=== PATIENT | female | born 1955 | race Caucasian/White ===

== ENCOUNTER 2018-12-10 16:34 | Observation (INO) ==
--- NOTE | 2018-12-10 17:00 | Emergency Department Note ---
ED Disposition Clinical Impression: Lethargy UTI (urinary tract infection) Qualifiers: Urinary tract infection type: site unspecified Hematuria presence: without hematuria Qualified Code(s): N39.0 - Urinary tract infection, site not specified Disposition: Admitted as Observation Condition on Discharge: Fair Referrals: Richar Pulliam MD [Primary Care Provider] - - Critical Care Critical Care Time: No Attestation: On 12/10/18, the high probability of a clinically significant, sudden or life threatening deterioration of the following system(s) required my full and direct attention, intervention and personal management. The time I documented below is in addition to time spent performing reported procedures but includes the following listed in this critical care notation. Medical Decision Making - [place] Inquiry Pt receiving controlled substance: No Vital Signs: 12/10/18 16:47 12/10/18 16:57 12/10/18 18:21 Temperature 97.7 F Temperature Source Oral Pulse Rate [Left Apical] 70 59 L 62 Respiratory Rate 18 18 Blood Pressure [Right Arm] 112/73 113/88 123/66 Blood Pressure Mean [Right Arm] 86 96 85 Blood Pressure Source [Right Arm] Blood Pressure Position [Right Arm] 02 Sat by Pulse Oximetry 99 96 100 Oxygen Delivery Method Room Air Room Air 12/10/18 19:03 12/10/18 20:26 Temperature Temperature Source Pulse Rate [Left Apical] 65 111 H Respiratory Rate 18 Blood Pressure [Right Arm] 138/99 H 142/77 H Blood Pressure Mean [Right Arm] 112 98 Blood Pressure Source [Right Arm] Automatic Cuff Blood Pressure Position [Right Arm] Sitting 02 Sat by Pulse Oximetry 97 97 Oxygen Delivery Method Room Air - Lab Data Lab Results 12/10/18 17:10: Specimen Source Right radial, O2 % room air, ABG pH 7.35, ABG pCO2 43.5, ABG pO2 69.4 L, ABG HCO3 23.3, ABG Total CO2 24.6, ABG O2 Saturation 93, ABG Base Excess -2.4, Feng Test Patient unable 12/10/18 17:30: WBC 6.0, RBC 4.06 L, Hgb 12.4, Hct 37.6, MCV 92.6, MCH 30.5, MCHC 32.9, RDW 13.6, Plt Count 248, MPV 7.1 L, Neut % (Auto) 66.5, Lymph % (Auto) 25.0, [place] % (Auto) 7.8, Eos % (Auto) 0.2, Baso % (Auto) 0.5, Neut # (Auto) 4.0, Lymph # (Auto) 1.5, [place] # (Auto) 0.5, Eos # (Auto) 0.0, Baso # (Auto) 0.0 12/10/18 17:30: Sodium 139, Potassium 4.2, Chloride 106, Carbon Dioxide 26, Anion Gap 11.2, BUN 28 H, Creatinine 1.99 H, Estimated Creat Clear 39, Estimated GFR 25 L, Est GFR ( Amer) 31 L, Glucose 94, Calcium 8.8, Total Bilirubin 0.3, AST 9 L, ALT 21, Alkaline Phosphatase 118 H, Troponin I < 0.02, Total Protein 7.3, Albumin 3.2 L, Globulin 4.1 H, Albumin/Globulin Ratio 0.8 L, Salicylates 1.0 L, Acetaminophen 0 L 12/10/18 17:30: TSH 0.79, Free T4 Index 3.2 L, Thyroxine (T4) 8.9, T3 Uptake 36 12/10/18 18:19: Urine Color Yellow, Urine Appearance Clear, Urine pH 6.0, Ur Sp ecific [place] <= 1.005, Urine Protein Negative, Urine Glucose (UA) Negative, Urine Ketones Negative, Urine Blood Trace-l, Urine Nitrate Negative, Urine Bilirubin Negative, Urine Urobilinogen 0.2, Ur Leukocyte Esterase 2+ A, Urine WBC 10-20, Ur Squamous Epith Cells Occasional 12/10/18 18:19: Urine Opiates Screen Negative, Urine Methadone Screen Negative, Ur Barbituates Screen Negative, Ur Phencyclidine Scrn Negative, Ur Amphetamines Screen Negative, U Benzodiazepines Scrn Negative, Urine Cocaine Screen Negative, U Marijuana (THC) Screen Negative Result diagrams: 12/10/18 17:30 12/10/18 17:30 Orders (Tests/Meds): ED MEDICATIONS Generic Name Dose Route Start Last Admin Trade Name Freq PRN Reason Stop Dose Admin Ceftriaxone Sodium 1 gm/ 50 mls @ 100 mls/hr 12/10/18 20:00 12/10/18 20:18 Sodium Chloride IV 12/24/18 19:59 100 mls/hr Q24H ROSALBA Administration Protocol ORDERS Category Date Time Status Urine Culture Stat Micro 12/10/18 18:19 Received - CT Data CT Scan: Head Time Received: 19:36 Findings Narrative: CT scan interpreted by [facility] radiologist. Faxed report received and reviewed: No acute intracranial abnormality - ECG Data Tracing #1 EKG interpreted by Teo Erickson MD: Rhythm: sinus Rate: 74 [place]: normal Ectopy: Frequent premature contractions, which appear both supraventricular and ventricular, in a pattern of bigeminy Conduction: QTc [address] Segment Changes: none T Wave Changes: none Q Waves: none No evidence of acute ischemia or injury No prior EKGs available for comparison - Physician Consults Physician Consulted: Heraclio - present Time: 20:05 Reason -: Admission Comment/Response: Agrees to admit the patient to the hospital. We discussed the patient's clinical information, including history, exam, laboratory and radiology results and ED course. Per hospital procedure, I will write temporary bridge inpatient orders on the patient. Specific orders requested by the admitting physician: Admit for observation, hold all medications - Reevaluation(s) Time: 20:00 Reevaluation #1: Improved, "more coherent" per sister. Still falls asleep readily when not stimulated. General Adult HPI - General Chief complaint: Altered Mental Status Stated complaint: lethargy Time Seen by Provider: 12/10/18 16:59 Mode of Arrival: Ambulatory Limitations: No Limitations Description of Symptoms (Recalled from ER Triage Doc. by RN): PT arrived from detention with increased lethergy as stated by a visitor. PT states someon at the detention gave her a little red pill that is making her tired. - History of Present Illness HPI narrative: Patient is brought in by ambulance from detention for altered mental status. History obtained from the patient's sister. She states she went to visit the patient today and could not wake her up. She was extremely lethargic. She could not get her to stay awake. She did not complain of any pain. She has not otherwise been ill. There have been no recent medication changes to her knowledge. The patient mentioned to the ED nurse that somebody at the detention, and nurse, had given her a little red pill. - Related Data Home Medications Medication Instructions Recorded Confirmed acetaminophen 500 mg tablet 1,000 mg PO Q6H PRN tab 10/11/18 10/11/18 acetaminophen 500 mg tablet 500 mg PO Q6H PRN 10/11/18 10/11/18 benztropine 2 mg tablet 2 mg PO BID 10/11/18 10/11/18 clonazepam 0.5 mg tablet 0.5 mg PO TID 10/11/18 10/11/18 escitalopram 10 mg tablet 10 mg PO DAILY 10/11/18 10/11/18 haloperidol 10 mg tablet 10 mg PO TID 10/11/18 10/11/18 olanzapine 10 mg tablet 10 mg PO QHS 10/11/18 10/11/18 olanzapine 5 mg tablet 5 mg PO QHS 10/11/18 10/11/18 omeprazole 20 mg capsule,delayed 20 mg PO BID cap 10/11/18 10/11/18 release trazodone 50 mg tablet 50 mg PO QHS PRN 10/11/18 10/11/18 Allergies Allergy/AdvReac Type Severity Reaction Status Date / Time lithium AdvReac Verified 10/11/18 10:55 risperidone AdvReac Verified 10/11/18 10:55 [facility] History - Hepatitis A Screen Drug use history?: No High risk sexual behaviors?: No History of sexually transmitted infection?: No Currently employed?: No Childcare worker?: No Do you have indoor plumbing?: Yes Do you have electricity?: Yes Attestation statement:: This patient has been screened for Hepatitis A risk factors. - Social History Alcohol Intake: never Occupational Status: disabled - Psychiatric History Expresses thoughts of harming self/others: None Suicide Plan Description: No Plan ROS Obtained: Yes unobtainable due to mental status Physical Exam - General General appearance: lethargic Comment: Sleeping, awakens when spoken to. Answers questions, but speech is slurred. No facial asymmetry. - Head Head exam: atraumatic, normocephalic - Eye Eye exam: Present: normal appearance, PERRL, EOMI, other (Pupils 5 mm, reactive.) - ENT ENT exam: Present: mucous membranes dry - Neck Neck exam: Present: normal inspection, trachea midline. Absent: meningismus - Chest Chest inspection: Present: normal inspection, symmetric chest wall rise - Respiratory Respiratory exam: Present: normal lung sounds bilaterally. Absent: respiratory distress - Cardiovascular Cardiovascular exam: Present: regular rate, normal rhythm, normal heart sounds - Abdominal Exam Abdominal exam: Present: soft, normal bowel sounds. Absent: distention, tenderness, guarding, rebound, rigidity - Extremities Exam Extremities exam: Present: normal inspection - Neurological Exam Neurological exam: Present: CN II-XII intact, other (Lethargic without focal deficits). Absent: motor sensory deficit - Skin Skin exam: Present: warm, dry
[2018-12-10 17:42] LABS: Basophils % 0.5 % (0.1-2.0); Eosinophils % 0.2 % (0.1-12.0); Hematocrit 37.6 % (37.0-47.0); Hemoglobin 12.4 g/dL (12.2-16.2); Lymphocytes # 1.5 K/mm3 (0.7-4.5); Mean Corpuscular HGB Conc 32.9 g/dL (31.8-35.4); Mean Corpuscular Hemoglobin 30.5 pg (27.0-31.2); Mean Corpuscular Volume 92.6 fl (81-99); Mean Platelet Volume 7.1 fl (7.4-10.4); Monocytes # 0.5 K/mm3 (0.1-1.0); Monocytes % 7.8 % (1.7-9.3); Neutrophils % 66.5 % (37.0-80.0); Platelet Count 248 K/mm3 (142-424); Red Blood Count 4.06 M/mm3 (4.20-5.40); Red Cell Distribution Width 13.6 % (11.5-17.5)
[2018-12-10 18:01] LABS: Alanine Aminotransferase 21 U/L (12-78); Albumin Level 3.2 gm/dL (3.4-5.0); Albumin/Globulin Ratio 0.8 (1.1-1.8); Alkaline Phosphatase 118 U/L (46-116); Anion Gap 11.2 mEq/L (5-15); Aspartate Amino Transferase 9 U/L (15-37); Bilirubin,Total 0.3 mg/dL (0.2-1.0); Blood Urea Nitrogen 28 mg/dL (7-18); Calcium 8.8 mg/dL (8.5-10.1); Carbon Dioxide 26 mmol/L (21.0-32.0); Chloride 106 mmol/L (98-107); Globulin 4.1 gm/dl (1.3-3.2); Glucose 94 mg/dL (74-106); Potassium 4.2 mmoL/L (3.5-5.1); Sodium 139 mmol/L (136-145); Total Protein,Serum 7.3 gm/dL (6.4-8.2)
[2018-12-10 18:08] LABS: ABG Base Excess -2.4 mmol/L (-2.4-2.3); ABG HCO3 23.3 mmhg (22.0-26.0); ABG Oxygen Saturation 93 % (90-100); ABG PCO2 43.5 mmhg (35.0-45.0); ABG PH 7.35 mmol/L (7.35-7.45); ABG PO2 69.4 mmhg (80-100); ABG TCO2 24.6 mmhg (23-27)
[2018-12-10 18:09] LABS: Allen's Test Patient Unable; Oxygen room air %
[2018-12-10 18:25] LABS: Microscopic, Urine URINE MICROSCOPIC (MICROSCOPIC)
[2018-12-10 18:35] LABS: Acetaminophen 0 ug/mL (10-30)
[2018-12-10 18:37] LABS: Free Thyroxine Index 3.2 ug/dL (5.93-13.13); Thyroid Stimulating Hormone 0.79 uIU/ml (0.358-3.740)
[2018-12-10 18:46] LABS: Appearance,Urine CLEAR (Clear); Bilirubin,Urine Negative (Negative); Blood, Urine TRACE-L (Negative); Color,Urine YELLOW (Yellow); Glucose,Urine (UA) Negative (Negative); Ketones,Urine Negative (Negative); Leukocyte Esterase,Urine 2+ (Negative); Protein,Urine Negative (Negative); Specific Gravity, Urine <= 1.005 (1.005-1.030); Squamous Epithelial Cell,Urine Occasional #/hpf (0-5); Urobilinogen,Urine 0.2 EU/dl (0.2)
[2018-12-10 19:01] LABS: Amphetamine/Metha Screen,Urine Negative ng/mL (<1000); Barbiturates Screen,Urine Negative ng/mL (<200); Benzodiazepines Screen,Urine Negative ng/mL (<200); Cannabinoid Screen,Urine Negative ng/mL (<50); Cocaine Screen,Urine Negative ng/mL (<300); Methadone Screen,Urine Negative ng/mL (<300); Opiate Screen,Urine Negative ng/mL (<300); Phencyclidine Screen,Urine Negative ng/mL (<25)
--- NOTE | 2018-12-10 21:43 | History & Physical Report ---
*Admission Date: 12/10/18 *Chief complaint: altered mental status *History of present illness: this wf was sent from [facility] for eval of change in mental status -pt was poor historian but sister present and reports more lethargic today atient is brought in by ambulance from halfway for altered mental status. History obtained from the patient's sister. She states she went to visit the patient today and could not wake her up. She was extremely lethargic. She could not get her to stay awake. She did not complain of any pain. She has not otherwise been ill. There have been no recent medication changes to her knowledge. The patient mentioned to the ED nurse that somebody at the halfway, and nurse, had given her a little red pill. pt was found to have uti and was admitted for ivf and abx - [facility] History I have reviewed the patient's past medical history: Yes - *Social History Alcohol Intake: never *Occupational Status:: disabled *Travel in the last 8 weeks: None - Psychiatric History Expresses thoughts of harming self/others: None Suicide Plan Description: No Plan Family Hx:: No significant family history Review of Systems - Review of Systems Review of systems:: pertinent systems reviewed and negative unless documented below - Constitutional Reports weakness, Reports other (altered mental status ), Denies fever(s) - Eyes Denies change in vision - ENT Denies sore throat - *Cardiovascular Denies chest pain at rest - *Respiratory Denies cough - *Gastrointestinal Denies abdominal pain - *Genitourinary Denies blood in urine - *Musculoskeletal Denies back pain - Integumentary/Breasts Denies rash - *Neurologic Reports confusion, Denies localized weakness - Psychiatric Reports confusion Meds Home Medications Medication Instructions Recorded Confirmed Type acetaminophen 500 mg tablet 1,000 mg PO Q6H PRN tab 10/11/18 12/10/18 History acetaminophen 500 mg tablet 500 mg PO Q6H PRN 10/11/18 12/10/18 History benztropine 2 mg tablet 2 mg PO BID 10/11/18 12/10/18 History clonazepam 0.5 mg tablet 0.5 mg PO TID 10/11/18 12/10/18 History escitalopram 10 mg tablet 10 mg PO DAILY 10/11/18 12/10/18 History haloperidol 10 mg tablet 10 mg PO TID 10/11/18 12/10/18 History olanzapine 10 mg tablet 10 mg PO QHS 10/11/18 12/10/18 History olanzapine 5 mg tablet 5 mg PO DAILY 10/11/18 12/10/18 History omeprazole 20 mg capsule,delayed 20 mg PO BID cap 10/11/18 12/10/18 History release trazodone 50 mg tablet 50 mg PO QHS 10/11/18 12/10/18 History Allergies Allergy/AdvReac Type Severity Reaction Status Date / Time lithium AdvReac Verified 10/11/18 10:55 risperidone AdvReac Verified 10/11/18 10:55 Exam Vital signs and Labs for Last 24 Hours: Temp Pulse Resp BP Pulse Ox 98.0 F 72 16 140/70 97 12/10/18 21:23 12/10/18 21:23 12/10/18 21:23 12/10/18 21:23 12/10/18 20:26 Laboratory Results - last 24 hr 12/10/18 17:10: Specimen Source Right radial, O2 % room air, ABG pH 7.35, ABG pCO2 43.5, ABG pO2 69.4 L, ABG HCO3 23.3, ABG Total CO2 24.6, ABG O2 Saturation 93, ABG Base Excess -2.4, Feng Test Patient unable 12/10/18 17:30: WBC 6.0, RBC 4.06 L, Hgb 12.4, Hct 37.6, MCV 92.6, MCH 30.5, MCHC 32.9, RDW 13.6, Plt Count 248, MPV 7.1 L, Neut % (Auto) 66.5, Lymph % (Auto) 25.0, [place] % (Auto) 7.8, Eos % (Auto) 0.2, Baso % (Auto) 0.5, Neut # (Auto) 4.0, Lymph # (Auto) 1.5, [place] # (Auto) 0.5, Eos # (Auto) 0.0, Baso # (Auto) 0.0 12/10/18 17:30: Sodium 139, Potassium 4.2, Chloride 106, Carbon Dioxide 26, Anion Gap 11.2, BUN 28 H, Creatinine 1.99 H, Estimated Creat Clear 39, Estimated GFR 25 L, Est GFR ( Amer) 31 L, Glucose 94, Calcium 8.8, Total Bilirubin 0.3, AST 9 L, ALT 21, Alkaline Phosphatase 118 H, Troponin I < 0.02, Total Protein 7.3, Albumin 3.2 L, Globulin 4.1 H, Albumin/Globulin Ratio 0.8 L, Salicylates 1.0 L, Acetaminophen 0 L 12/10/18 17:30: TSH 0.79, Free T4 Index 3.2 L, Thyroxine (T4) 8.9, T3 Uptake 36 12/10/18 18:19: Urine Color Yellow, Urine Appearance Clear, Urine pH 6.0, Ur Specific [place] <= 1.005, Urine Protein Negative, Urine Glucose (UA) Negative, Urine Ketones Negative, Urine Blood Trace-l, Urine Nitrate Negative, Urine Bilirubin Negative, Urine Urobilinogen 0.2, Ur Leukocyte Esterase 2+ A, Urine WBC 10-20, Ur Squamous Epith Cells Occasional 12/10/18 18:19: Urine Opiates Screen Negative, Urine Methadone Screen Negative, Ur Barbituates Screen Negative, Ur Phencyclidine Scrn Negative, Ur Amphetamines Screen Negative, U Benzodiazepines Scrn Negative, Urine Cocaine Screen Negative, U Marijuana (THC) Screen Negative I & O for Last 24 hours: Intake & Output 12/08/18 12/09/18 12/10/18 12/11/18 11:59 11:59 11:59 11:59 Weight 185 lb - Constitutional no acute distress, obese, somnolent - *Routine HEENT Exam Head: Present: normocephalic Eye: Present: EOMI, PERRL. Absent: conjunctival icterus, scleral injection ENT: Present: mucous membranes dry - *Routine Neck Exam Present: supple. Absent: JVD - *Routine Respiratory Exam Present: decreased breath sounds - *Routine Cardiovascular Exam Present: RRR, murmur - *Routine Abdominal Exam Present: soft - *Routine Extremities Exam Absent: Sarita's sign - Routine Back/Spine/Pelvis Exam Back/Spine: Absent: CVA tenderness - *Routine Skin Exam Present: intact - *Routine Neurological Exam Present: alert, CN II-XII intact, altered mental status - Routine Psychiatric Exam Present: unable to assess Assessment and Plan (1) Acute delirium Current visit: Yes Status: Acute Category: Medical Code(s): R41.0 - Disorientation, unspecified (2) UTI (urinary tract infection) Current visit: Yes Status: Acute Qualifiers: Urinary tract infection type: site unspecified Hematuria presence: without hematuria Qualified Code(s): N39.0 - Urinary tract infection, site not specified Category: Medical Code(s): N39.0 - Urinary tract infection, site not specified (3) Obesity (BMI 30.0-34.9) Current visit: Yes Status: Acute Category: Medical Code(s): E66.9 - Obesity, unspecified (4) CKD (chronic kidney disease) stage 4, GFR 15-29 ml/min Current visit: Yes Status: Acute Category: Medical Code(s): N18.4 - Chronic kidney disease, stage 4 (severe) (5) Hiatal hernia Current visit: Yes Status: Acute Category: Medical Code(s): K44.9 - Diaphragmatic hernia without obstruction or gangrene (6) Bigeminy Current visit: Yes Status: Acute Category: Medical Code(s): I49.9 - Cardiac arrhythmia, unspecified (7) Prolonged Q-T interval on ECG Current visit: Yes Status: Acute Category: Medical Code(s): R94.31 - Abnormal electrocardiogram [ECG] [EKG]
--- NOTE | 2018-12-11 08:42 | Progress Note ---
Internal Medicine - PN: Subj *Date: 12/11/18 *Time: 08:41 Interval history: doing better Exam Vital signs and Labs for Last 24 Hours: Temp Pulse Resp BP Pulse Ox 98.3 F 92 H 16 110/78 92 L 12/11/18 04:00 12/11/18 04:00 12/11/18 04:00 12/11/18 04:00 12/11/18 04:00 Laboratory Results - last 24 hr 12/10/18 17:10: Specimen Source Right radial, O2 % room air, ABG pH 7.35, ABG pCO2 43.5, ABG pO2 69.4 L, ABG HCO3 23.3, ABG Total CO2 24.6, ABG O2 Saturation 93, ABG Base Excess -2.4, Feng Test Patient unable 12/10/18 17:30: WBC 6.0, RBC 4.06 L, Hgb 12.4, Hct 37.6, MCV 92.6, MCH 30.5, MCHC 32.9, RDW 13.6, Plt Count 248, MPV 7.1 L, Neut % (Auto) 66.5, Lymph % (Auto) 25.0, [place] % (Auto) 7.8, Eos % (Auto) 0.2, Baso % (Auto) 0.5, Neut # (Auto) 4.0, Lymph # (Auto) 1.5, [place] # (Auto) 0.5, Eos # (Auto) 0.0, Baso # (Auto) 0.0 12/10/18 17:30: Sodium 139, Potassium 4.2, Chloride 106, Carbon Dioxide 26, Anion Gap 11.2, BUN 28 H, Creatinine 1.99 H, Estimated Creat Clear 39, Estimated GFR 25 L, Est GFR ( Amer) 31 L, Glucose 94, Calcium 8.8, Total Bilirubin 0.3, AST 9 L, ALT 21, Alkaline Phosphatase 118 H, Troponin I < 0.02, Total Protein 7.3, Albumin 3.2 L, Globulin 4.1 H, Albumin/Globulin Ratio 0.8 L, Salicylates 1.0 L, Acetaminophen 0 L 12/10/18 17:30: TSH 0.79, Free T4 Index 3.2 L, Thyroxine (T4) 8.9, T3 Uptake 36 12/10/18 18:19: Urine Color Yellow, Urine Appearance Clear, Urine pH 6.0, Ur Specific [place] <= 1.005, Urine Protein Negative, Urine Glucose (UA) Negative, Urine Ketones Negative, Urine Blood Trace-l, Urine Nitrate Negative, Urine Bilirubin Negative, Urine Urobilinogen 0.2, Ur Leukocyte Esterase 2+ A, Urine WBC 10-20, Ur Squamous Epith Cells Occasional 12/10/18 18:19: Urine Opiates Screen Negative, Urine Methadone Screen Negative, Ur Barbituates Screen Negative, Ur Phencyclidine Scrn Negative, Ur Amphetamines Screen Negative, U Benzodiazepines Scrn Negative, Urine Cocaine Screen Negative, U Marijuana (THC) Screen Negative I & O for Last 24 hours: Intake & Output 12/08/18 12/09/18 12/10/18 12/11/18 11:59 11:59 11:59 11:59 Intake Total 627 / 627 Output Total 1650 / 1650 Balance -1023 / -1023 Weight 194 lb 6 oz Microbiology Reports for the Last 24 Hours: Microbiology 12/10/18 18:19 Urine,Catheterized Urine Culture - Preliminary - Constitutional no acute distress, obese - *Routine HEENT Exam Head: Present: normocephalic Eye: Present: EOMI, PERRL ENT: Present: mucous membranes dry - *Routine Neck Exam Absent: JVD - *Routine Respiratory Exam Present: CTA bilaterally - *Routine Cardiovascular Exam Present: RRR, murmur - *Routine Abdominal Exam Present: soft - *Routine Extremities Exam Absent: calf tenderness - *Routine Skin Exam Present: intact - *Routine Neurological Exam Present: alert, CN II-XII intact - Routine Psychiatric Exam Present: normal affect Assessment and Plan (1) Acute delirium Current visit: Yes Status: Acute Category: Medical Code(s): R41.0 - Disorientation, unspecified (2) UTI (urinary tract infection) Current visit: Yes Status: Acute Qualifiers: Urinary tract infection type: site unspecified Hematuria presence: without hematuria Qualified Code(s): N39.0 - Urinary tract infection, site not specified Category: Medical Code(s): N39.0 - Urinary tract infection, site not specified (3) Obesity (BMI 30.0-34.9) Current visit: Yes Status: Acute Category: Medical Code(s): E66.9 - Obesity, unspecified (4) CKD (chronic kidney disease) stage 4, GFR 15-29 ml/min Current visit: Yes Status: Acute Category: Medical Code(s): N18.4 - Chronic kidney disease, stage 4 (severe) (5) Hiatal hernia Current visit: Yes Status: Acute Category: Medical Code(s): K44.9 - Diaphragmatic hernia without obstruction or gangrene (6) Bigeminy Current visit: Yes Status: Acute Category: Medical Code(s): I49.9 - Cardiac arrhythmia, unspecified (7) Prolonged Q-T interval on ECG Current visit: Yes Status: Acute Category: Medical Code(s): R94.31 - Abnormal electrocardiogram [ECG] [EKG]
[2018-12-11 11:29] LABS: Basophils % 0.3 % (0.1-2.0); Eosinophils # 0.1 K/mm3 (0.0-0.4); Eosinophils % 0.5 % (0.1-12.0); Hematocrit 39.7 % (37.0-47.0); Hemoglobin 13.2 g/dL (12.2-16.2); Lymphocytes # 1.6 K/mm3 (0.7-4.5); Lymphocytes % 13.2 % (10-50); Mean Corpuscular HGB Conc 33.2 g/dL (31.8-35.4); Mean Corpuscular Hemoglobin 30.5 pg (27.0-31.2); Mean Corpuscular Volume 91.9 fl (81-99); Mean Platelet Volume 7.6 fl (7.4-10.4); Monocytes # 0.5 K/mm3 (0.1-1.0); Monocytes % 4.5 % (1.7-9.3); Neutrophils # 9.7 K/mm3 (1.8-7.8); Neutrophils % 81.6 % (37.0-80.0); Platelet Count 246 K/mm3 (142-424); Red Blood Count 4.32 M/mm3 (4.20-5.40); Red Cell Distribution Width 13.6 % (11.5-17.5)
[2018-12-11 12:45] LABS: Anion Gap 16.1 mEq/L (5-15); Calcium 8.7 mg/dL (8.5-10.1); Potassium 4.1 mmoL/L (3.5-5.1)
--- NOTE | 2018-12-11 13:34 | Pharmacy Consult Notes ---
[facility] Pharmacy VTE Monitoring - Patient Demographics Admission date: 12/10/18 Report Date: 12/11/18 Time: 13:34 Allergies/Adverse Reactions: Patient Allergies lithium Adverse Reaction (Verified 10/11/18 10:55) risperidone Adverse Reaction (Verified 10/11/18 10:55) Height: 1.68 m Weight: 88.167 kg Patient Problems: Current Active Problems (Updated 12/11/18 @ 08:39 by Richar Pulliam MD) Lethargy (Acute) UTI (urinary tract infection) (Acute) Acute delirium (Acute) UTI (urinary tract infection) (Acute) Obesity (BMI 30.0-34.9) (Acute) CKD (chronic kidney disease) stage 4, GFR 15-29 ml/min (Acute) Hiatal hernia (Acute) Bigeminy (Acute) Prolonged Q-T interval on ECG (Acute) - VTE Risk Labs: VTE Related Lab Results Hgb 13.2 g/dL (12.2-16.2) 12/11/18 11:16 Hct 39.7 % (37.0-47.0) 12/11/18 11:16 Plt Count 246 K/mm3 (142-424) 12/11/18 11:16 BUN 25 mg/dL (7-18) H 12/11/18 11:16 Creatinine 1.96 mg/dL (0.55-1.02) H 12/11/18 11:16 Estimated Creat Clear 42 mL/min (50-200) 12/11/18 11:16 Was VTE Risk Assessment Performed: Yes VTE Score: 2 VTE Risk Level: Very Low Risk - Prophylaxis VTE Prophylaxis Ordered?: Yes Types of VTE Prophylaxis: TEDS Knee High Location of Applied Device: Bilateral Lower Extremeties
[2018-12-12 08:53] LABS: Eosinophils % 0.1 % (0.1-12.0); Monocytes # 0.4 K/mm3 (0.1-1.0); Red Cell Distribution Width 13.6 % (11.5-17.5)
[2018-12-12 08:57] LABS: Basophils % 0.6 % (0.1-2.0); Hematocrit 34.7 % (37.0-47.0); Lymphocytes # 1.3 K/mm3 (0.7-4.5); Lymphocytes % 19.3 % (10-50); Mean Corpuscular HGB Conc 32.4 g/dL (31.8-35.4); Mean Corpuscular Volume 92.6 fl (81-99); Mean Platelet Volume 7.3 fl (7.4-10.4); Monocytes % 5.5 % (1.7-9.3); Neutrophils # 5.1 K/mm3 (1.8-7.8); Neutrophils % 74.6 % (37.0-80.0); Platelet Count 222 K/mm3 (142-424); Red Blood Count 3.75 M/mm3 (4.20-5.40); White Blood Count 6.9 K/mm3 (4.8-10.8)
[2018-12-12 08:59] LABS: Anion Gap 16.4 mEq/L (5-15); Calcium 8.5 mg/dL (8.5-10.1); Potassium 4.4 mmoL/L (3.5-5.1)
[2018-12-12 09:00] LABS: Hemoglobin 11.2 g/dL (12.2-16.2)
--- NOTE | 2018-12-12 09:00 | Progress Note ---
Internal Medicine - PN: Subj *Date: 12/12/18 *Time: 08:56 Interval history: doing better - still not at baseline Exam Vital signs and Labs for Last 24 Hours: Temp Pulse Resp BP Pulse Ox 97.8 F 76 16 132/66 98 12/12/18 04:00 12/12/18 04:00 12/12/18 04:00 12/12/18 04:00 12/12/18 07:43 Laboratory Results - last 24 hr 12/11/18 11:16: WBC 12.0 H D, RBC 4.32, Hgb 13.2, Hct 39.7, MCV 91.9, MCH 30.5, MCHC 33.2, RDW 13.6, Plt Count 246, MPV 7.6, Neut % (Auto) 81.6 H, Lymph % (Auto) 13.2, [place] % (Auto) 4.5, Eos % (Auto) 0.5, Baso % (Auto) 0.3, Neut # (Auto) 9.7 H, Lymph # (Auto) 1.6, [place] # (Auto) 0.5, Eos # (Auto) 0.1, Baso # (Auto) 0.0 12/11/18 11:16: Sodium 142, Potassium 4.1, Chloride 107, Carbon Dioxide 23, Anion Gap 16.1 H, BUN 25 H, Creatinine 1.96 H, Estimated Creat Clear 42, Estimated GFR 26 L, Est GFR ( Amer) 31 L, Glucose 101, Calcium 8.7 I & O for Last 24 hours: Intake & Output 12/09/18 12/10/18 12/11/18 12/12/18 11:59 11:59 11:59 11:59 Intake Total 627 / 627 720 / 720 Output Total 2069 / 2069 1934 / 1934 Balance -1443 / -1443 -1215 / -1215 Weight 194 lb 6 oz 198 lb 1 oz Microbiology Reports for the Last 24 Hours: Microbiology 12/10/18 18:19 Urine,Catheterized Urine Culture - Preliminary - Constitutional no acute distress, obese - *Routine HEENT Exam Head: Present: normocephalic Eye: Present: EOMI, PERRL. Absent: conjunctival icterus ENT: Present: mucous membranes dry - *Routine Neck Exam Present: supple - *Routine Respiratory Exam Present: CTA bilaterally - *Routine Cardiovascular Exam Present: RRR, murmur - *Routine Abdominal Exam Present: soft - *Routine Extremities Exam Absent: calf tenderness - *Routine Skin Exam Present: intact - *Routine Neurological Exam Present: alert, CN II-XII intact - Routine Psychiatric Exam Present: cooperative, anxious Assessment and Plan (1) Acute delirium Current visit: Yes Status: Acute Category: Medical Code(s): R41.0 - Disorientation, unspecified (2) UTI (urinary tract infection) Current visit: Yes Status: Acute Qualifiers: Urinary tract infection type: site unspecified Hematuria presence: without hematuria Qualified Code(s): N39.0 - Urinary tract infection, site not specified Category: Medical Code(s): N39.0 - Urinary tract infection, site not specified (3) Obesity (BMI 30.0-34.9) Current visit: Yes Status: Acute Category: Medical Code(s): E66.9 - Obesity, unspecified (4) CKD (chronic kidney disease) stage 4, GFR 15-29 ml/min Current visit: Yes Status: Acute Category: Medical Code(s): N18.4 - Chronic kidney disease, stage 4 (severe) (5) Hiatal hernia Current visit: Yes Status: Acute Category: Medical Code(s): K44.9 - Diaphragmatic hernia without obstruction or gangrene (6) Bigeminy Current visit: Yes Status: Acute Category: Medical Code(s): I49.9 - Cardiac arrhythmia, unspecified (7) Prolonged Q-T interval on ECG Current visit: Yes Status: Acute Category: Medical Code(s): R94.31 - Abnormal electrocardiogram [ECG] [EKG] (8) Schizophrenia Current visit: Yes Status: Acute Qualifiers: Schizophrenia type: paranoid schizophrenia Qualified Code(s): F20.0 - Paranoid schizophrenia Category: Medical Code(s): F20.9 - Schizophrenia, unspecified
[2018-12-13 10:19] LABS: Basophils # 0.1 K/mm3 (0-0.2); Basophils % 0.6 % (0.1-2.0); Eosinophils % 0.1 % (0.1-12.0); Hematocrit 37.6 % (37.0-47.0); Hemoglobin 12.2 g/dL (12.2-16.2); Lymphocytes # 1.6 K/mm3 (0.7-4.5); Lymphocytes % 22.1 % (10-50); Mean Corpuscular HGB Conc 32.4 g/dL (31.8-35.4); Mean Corpuscular Hemoglobin 30.3 pg (27.0-31.2); Mean Corpuscular Volume 93.5 fl (81-99); Mean Platelet Volume 7.3 fl (7.4-10.4); Monocytes # 0.4 K/mm3 (0.1-1.0); Monocytes % 5.3 % (1.7-9.3); Neutrophils # 5.3 K/mm3 (1.8-7.8); Neutrophils % 71.9 % (37.0-80.0); Platelet Count 260 K/mm3 (142-424); Red Blood Count 4.02 M/mm3 (4.20-5.40); Red Cell Distribution Width 13.7 % (11.5-17.5); White Blood Count 7.3 K/mm3 (4.8-10.8)
[2018-12-13 10:23] LABS: Anion Gap 13.4 mEq/L (5-15); Calcium 8.6 mg/dL (8.5-10.1); Potassium 4.4 mmoL/L (3.5-5.1)
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
--- NOTE | 2018-12-13 13:24 | Discharge Summary ---
General - General Admission date:: 12/10/18 Discharge date: 12/13/18 HPI HPI: this wf was sent from [facility] for eval of change in mental status -pt was poor historian but sister present and reports more lethargic today atient [facility]. History obtained from the patient's sister. She states she went to visit the patient today and could not wake her up. She was extremely lethargic. She could not get her to stay awake. She did not complain of any pain. She has not otherwise been ill. There have been no recent medication changes to her knowledge. The patient mentioned to the ED nurse that [facility] the [facility], and nurse, had given her a little red pill. pt was found to have uti and was admitted for ivf and abx - Hospital Course Hospital Course: pt was admitted and placed on ivf and abx and has slowly improved and returned to baseline - she was found to have bacterial infection and seen by card with no issues with qt and meds - she was seen by therapy and ok - Objective Vital signs: Temp Pulse Resp BP Pulse Ox 98.0 F 85 18 115/84 100 12/13/18 08:16 12/13/18 08:16 12/13/18 08:16 12/13/18 08:16 12/13/18 08:16 no acute distress, obese - *Routine HEENT Exam Head: Present: normocephalic Eye: Present: EOMI, PERRL. Absent: conjunctival icterus ENT: Present: mucous membranes dry - *Routine Neck Exam Present: supple - *Routine Respiratory Exam Present: CTA bilaterally - *Routine Cardiovascular Exam Present: RRR, murmur - *Routine Abdominal Exam Present: soft - *Routine Extremities Exam Absent: calf tenderness - *Routine Skin Exam Present: intact - *Routine Neurological Exam Present: CN II-XII intact - Routine Psychiatric Exam Present: anxious. Absent: good insight Comments: at baseline Results Labs on day of discharge: Labs from last 24 hours 12/13/18 12/13/18 10:05 10:05 WBC 7.3 RBC 4.02 L Hgb 12.2 Hct 37.6 MCV 93.5 MCH 30.3 MCHC 32.4 RDW 13.7 Plt Count 260 MPV 7.3 L Neut % (Auto) 71.9 Lymph % (Auto) 22.1 [place] % (Auto) 5.3 Eos % (Auto) 0.1 Baso % (Auto) 0.6 Neut # (Auto) 5.3 Lymph # (Auto) 1.6 [place] # (Auto) 0.4 Eos # (Auto) 0.0 Baso # (Auto) 0.1 Sodium 142 Potassium 4.4 Chloride 109 H Carbon Dioxide 24 Anion Gap 13.4 BUN 32 H Creatinine 1.72 H Estimated Creat Clear 49 Estimated GFR 30 L Est GFR ( Amer) 36 L Glucose 97 Calcium 8.6 DS: Diagnosis - Discharge Diagnosis (1) Acute delirium Status: Acute (2) UTI (urinary tract infection) Status: Acute (3) Obesity (BMI 30.0-34.9) Status: Acute (4) CKD (chronic kidney disease) stage 4, GFR 15-29 ml/min Status: Acute (5) Hiatal hernia Status: Acute (6) Bigeminy Status: Acute (7) Prolonged Q-T interval on ECG Status: Acute (8) Schizophrenia Status: Acute (9) Staphylococcus epidermidis infection Status: Acute (10) Bacterial UTI Status: Acute Discharge Plan - Patient Discharge Instructions ACTIVITY: Continue current activity DIET: continue same diet Patient Instructions: Urinary Tract Infection, DI for Urinary Tract Infection (UTI) - Follow up Plan Disposition: Home, Self-Prison Medications: Home Medications Medication Instructions Recorded Confirmed Type acetaminophen 500 mg tablet 1,000 mg PO Q6H PRN tab 10/11/18 12/10/18 History acetaminophen 500 mg tablet 500 mg PO Q6H PRN 10/11/18 12/10/18 History benztropine 2 mg tablet 2 mg PO BID 10/11/18 12/10/18 History clonazepam 0.5 mg tablet 0.5 mg PO TID 10/11/18 12/10/18 History escitalopram 10 mg tablet 10 mg PO DAILY 10/11/18 12/10/18 History haloperidol 10 mg tablet 10 mg PO TID 10/11/18 12/10/18 History olanzapine 10 mg tablet 10 mg PO HS 10/11/18 12/11/18 History olanzapine 5 mg tablet 5 mg PO DAILY 10/11/18 12/10/18 History omeprazole 20 mg capsule,delayed 20 mg PO BID cap 10/11/18 12/10/18 History release trazodone 50 mg tablet 50 mg PO HS 10/11/18 12/11/18 History Cefdinir [Omnicef 300mg Capsule] 300 mg PO BID #10 cap 12/13/18 Rx Prescriptions/Medication Reconciliation: New Cefdinir [Omnicef 300mg Capsule] 300 mg PO BID #10 cap Continued benztropine 2 mg tablet 2 mg PO BID clonazepam 0.5 mg tablet 0.5 mg PO TID escitalopram 10 mg tablet 10 mg PO DAILY haloperidol 10 mg tablet 10 mg PO TID olanzapine 10 mg tablet 10 mg PO HS olanzapine 5 mg tablet 5 mg PO DAILY trazodone 50 mg tablet 50 mg PO HS omeprazole 20 mg capsule,delayed release 20 mg PO BID cap Discontinued acetaminophen 500 mg tablet 1,000 mg PO Q6H PRN tab PRN Reason: Mild Pain acetaminophen 500 mg tablet 500 mg PO Q6H PRN PRN Reason: Mild Pain,Fever,Headache
--- NOTE | 2018-12-13 21:47 | Cardiology Report ---
PROCEDURE: 2-D M-mode and color Doppler study INDICATIONS FOR THE TEST: Chest pain COPD Heart Murmur Tobacco Smoking Palpitations Fatigue Syncope Edema Hypertension Diabetes Mellitus Rheumatic Fever SOB LEA Obesity + Hyperlipidemia Family History HD Additional History BIGEMINY PATIENT INFORMATION HEIGHT: 68 WEIGHT:198 GENDER: Female B/P:140/70 2-D/M-MODE INTERPRETATION: 2-D MEASUREMENTS OBSERVED VALUES IN CMS Right Ventricular Dimension (RVDd) 2.1 Interventricular Septum (Thickness)(IVsd) 1.0 Left Ventricular Internal Dimensions(LVIDd) 5.1 Left Ventricular Posterior Wall (Thickness)(LVPWd) 0.8 Aortic Root 3.9 Aortic Cusp Separation 2.3 Left Atrial Dimensions (LAD) 3.9 2D 1. Left atrium is mildly enlarged, left ventricle is normal size, mild concentric left ventricular hypertrophy, visually estimated ejection fraction 55% with no regional wall motion abnormality. 2. The right atrium and right ventricle are normal size and contractility. 3. The aortic valve is minimally thickened. 4. The mitral and tricuspid valve are grossly normal. 5. The pulmonic valve is poorly visualized. 6. No significant pericardial effusion noted. DOPPLER INTERROGATION: Doppler interrogation of the aortic, mitral and tricuspid valvular presence of mild mitral and tricuspid regurgitation, tricuspid regurgitation jet velocity is inadequate for calculation of the right ventricular systolic pressure, grade 1 diastolic dysfunction seen with tissue Doppler evidence of raised left atrial pressure. CONCLUSION: 1. Mildly left atrium, normal left ventricular size, mild concentric left ventricular hypertrophy, visually estimated ejection fraction 55% with no regional wall motion abnormality, grade 1 diastolic dysfunction seen with tissue Doppler evidence of raised left atrial pressure. 2. Mild mitral and tricuspid regurgitation 3. No significant pericardial effusion noted.
== END 2018-12-13 14:49 | disposition home or self-care (01) ==
LOC: ER 16:34 → 2ND 16:34
PROVIDERS: ADMIT Emergency Medicine; ATTEND Emergency Medicine
DX: F20.0 Paranoid schizophrenia; R74.8 Abnormal levels of other serum enzymes; Z68.32 Body mass index [BMI] 32.0-32.9, adult; Z16.39 Resistance to other specified antimicrobial drug; Z79.899 Other long term (current) drug therapy; B95.7 Other staphylococcus as the cause of diseases classified elsewhere; R53.83 Other fatigue; E66.9 Obesity, unspecified; N39.0 Urinary tract infection, site not specified; R41.0 Disorientation, unspecified; R94.31 Abnormal electrocardiogram [ECG] [EKG]; N18.4 Chronic kidney disease, stage 4 (severe); Z88.8 Allergy status to other drugs, medicaments and biological substances; I49.9 Cardiac arrhythmia, unspecified; K44.9 Diaphragmatic hernia without obstruction or gangrene
CPT/HCPCS: 36415; 70450; 71010; 71045; 80048; 80053; 80305; 80329; 81001; 82803; 84436; 84443; 84479; 84484; 85025; 87086; 87088; 87186; 93005; 93306; 96365; 97161; 97165; 99285; G0378

== ENCOUNTER 2020-01-07 17:53 | Emergency (ER) | payer MEDICARE, MEDICAID, SELFPAY ==
[2020-01-07 17:54] VITALS: BP 105/70; PULSE 95; RESP 18; TEMP 36.4; O2SAT 100; BMI 29.0
--- NOTE | 2020-01-07 18:03 | XR_ITS ---
PROCEDURE: XR KNEE LT 3V Patient Age:64Y CLINICAL INDICATION: fall left knee pain and swelling COMPARISON: No exams were available for comparison FINDINGS: Left knee three view AP oblique lateral No acute fracture or dislocation left knee.. There may be some scant increased joint fluid but no no prominent joint effusion. No. Normal mineralization. Suspect arthritic changes most pronounced at patellofemoral joint noting sclerosis both sides the joint on the lateral view. This joint can be further evaluated with a sunrise/patellar view if so desired. But the medial and lateral compartment are well maintained on this nonweightbearing study A 13 mm transverse times 7.5 mm height ovoid bone density is projected over the medial compartment of on lateral view appears to be more likely residing posteriorly. This either reflects reflecting a synovial calcification, synovial osteochondroma although could reflect a loose body. There is some lucency which likely reflects a subchondral cyst at the medial margin of the medial tibial plateau but this most likely reflect degenerative change focus but A tiny less than 2 mm round calcification is seen projected over the lateral meniscus of of doubtful significance; most likely reflects minimal meniscal calcification or chondrocalcinosis . IMPRESSION: No acute findings. Suggestion of arthritic changes developing at patellofemoral joint. No prominent joint effusion only question scant increased joint fluid suprapatellar bursa.. Subtle subchondral cyst medial margin, medial tibial plateau a suggestive of early degenerative feature. . Ovoid calcification projected over medial compartment, most likely resides posteriorly... Could reflect a synovial calcification or loose body Dictated by: Ever Aguilar MD 01/09/2020 08:19 Electronically signed by Ever Aguilar MD in [place] 01/09/2020 08:19
--- NOTE | 2020-01-07 18:10 | HMH.EDUTC ---
[facility] [place] Disposition Clinical Impression: Knee sprain Qualifiers: Encounter type: initial encounter Involved ligament of knee: unspecified ligament Laterality: left Qualified Code(s): S83.92XA - Sprain of unspecified site of left knee, initial encounter Disposition: Home, Self-Care Condition on Discharge: Good Instructions: How To Perform RICE (Rest, Ice, Compress, Elevate), How to Use a Knee Immobilizer, How to Choose and Use a Walker Additional Instructions: *weight bearing as tolerated *RICE, Rest the extremity, Ice 15-20 minutes 3-4 times daily, Compress- wear the romel wrap as discussed as much as possible to help reduce swelling and pain, Elevate the extremity when at rest *Romel wrap is for support and help control swelling, use it except in the shower. Be sure that is not to tight but not to loose either *Elevate when resting *Ibuprofen every 6-8 hours as needed for pain an inflammation. If need something more can take Tylenol in between doses of Ibuprofen to help Immediately follow up with your family doctor for new or worsening of symptoms, or no noticeable improvement over the next 3-5 days Call back to [facility] tomorrow for official Radiology reading of xray Return if needed Straight to ER if any life threatening symptoms Prescriptions: Walker [Walker, Standard] 1 each MISCELLANEOUS DIRECTED #1 each Prescription Printed Referrals: Richar Pulliam MD [Primary Care Provider] - As needed Time of Disposition: 19:22 Medical Decision Making - [place] Inquiry Pt receiving controlled substance: No [place] was queried for this patient: No Vital Signs: 01/07/20 17:54 Temperature 97.6 F Temperature Source Oral Pulse Rate [Right] 95 H Respiratory Rate 18 Blood Pressure [Right Arm] 105/70 L Blood Pressure Mean [Right Arm] 81 02 Sat by Pulse Oximetry 100 Orders (Tests/Meds): ORDERS Category Date Time Status XR knee LT 3V Stat Exams 01/07/20 18:03 Taken - Radiology Data #1 Image(s): Knee Image Reviewed: Yes I reviewed the patient's radiology image w/the ED provider Preliminary Findings: No Fracture Seen [facility] [place] HPI - General Stated [place]: [place] [id number] Fell Injured L Knee Time Seen by Provider: 01/07/20 18:11 Mode of Arrival: Ambulatory Limitations: No Limitations Description of Symptoms (Recalled from Triage Doc. by RN): LEFT KNEE INJURY HEENT Symptoms (Recalled from RN notes): No Resp Symptoms (Recalled from RN notes): No Skin Symptoms (Recalled from RN notes): No MS Symptoms (Recalled from RN notes): Yes Functional Status (Recalled from RN notes): FALL - History of Present Illness Provider Complaint: Patient and caregiver states that patient lost her balance earlier and landed on her left knee States that she had some swelling immediately after States that she has been complaining of pain in her left knee ever since Denies any other injury States that they took her to [facility] in [place] but they dont do xrays so they sent her here. States that she has been walking on it but complaining that it hurts - Related Data Previous Rx's Medication Instructions Recorded acetaminophen 500 mg tablet 1,000 mg PO Q6H PRN #60 tab 11/09/19 benztropine 2 mg tablet 2 mg PO BID #60 tab 11/09/19 clonazepam 0.5 mg tablet 0.5 mg PO TID 30 Days #90 tab 11/09/19 escitalopram oxalate 20 mg tablet 20 mg PO DAILY #30 tab 11/09/19 haloperidol 10 mg tablet 10 mg PO TID 30 Days #90 tab 11/09/19 olanzapine 20 mg tablet 20 mg PO QHS #30 tab 11/09/19 omeprazole 20 mg capsule,delayed 20 mg PO BID #60 cap 11/09/19 release quetiapine 25 mg tablet 25 mg PO BID #60 tab 11/09/19 trazodone 50 mg tablet 50 mg PO HS #30 tab 11/09/19 Walker [Walker, Standard] 1 each MISCELLANEOUS DIRECTED 01/07/20 #1 each Allergies Allergy/AdvReac Type Severity Reaction Status Date / Time lithium AdvReac Verified 10/26/19 13:59 risperidone AdvReac Verified 10/26/19 13:59 - Worker's Comp Is this a Worker's Comp case?: No [facility]
[2020-01-07 19:24] VITALS: BP 111/78; PULSE 90; RESP 20; TEMP 36.6; O2SAT 98
== END 2020-01-07 19:32 | disposition home or self-care (01) ==
PROVIDERS: Emergency Provider Nurse Practitioner; PCP Emergency Medicine
DX: S83.92XA Sprain of unspecified site of left knee, initial encounter (principal); W01.0XXA Fall on same level from slipping, tripping and stumbling without subsequent striking against object, initial encounter; Y92.019 Unspecified place in single-family (private) house as the place of occurrence of the external cause; Z88.8 Allergy status to other drugs, medicaments and biological substances; Z87.891 Personal history of nicotine dependence
CPT/HCPCS: 29505; G0463; 73562; 99203

== ENCOUNTER → 2020-07-02 10:48 | Outpatient (CLI) | payer MEDICARE, MEDICAID, SELFPAY ==
[2020-07-02 13:52] LABS: Coronavirus 19 IgG Antibody Positive (Negative); Coronavirus 19 IgM Antibody Negative (Negative)
== END ==
PROVIDERS: Visit Provider Ophthalmology
DX: Z01.818 Encounter for other preprocedural examination (principal); Z98.41 Cataract extraction status, right eye
CPT/HCPCS: 36415; 86328

== ENCOUNTER 2020-07-03 06:40 | Day surgery (SDC) | payer MEDICARE, MEDICAID, SELFPAY ==
[2020-07-03 06:58] VITALS: BP 96/70; PULSE 100; RESP 18; TEMP 36.9; O2SAT 93; BMI 31.1
[2020-07-03 08:15] VITALS: BP 107/60; PULSE 86; RESP 16; TEMP 36.3; O2SAT 95
--- NOTE | 2020-07-03 08:20 | P.PN_ITS ---
[facility] Anesthesia Checklist - Patient Identification Patient Identification: Arm Band, Verbal (Name & ) - Structural Data Admitted From: Long-term Nursing Facility Planned Operative Procedure/s: cataract Consent for Planned Operative Procedure(s) Verified: Yes Verified Documents: History and Physical - NPO Status Verified Time NPO: 00:00 - Additional verifications Patient : No Anesthesia Reactions: No Hx Blood Transfusions: No Blood Transfusion Reaction: No Cephalosporin Allergy: No Previous Colonoscopy: No - Cardiovascular Assessment Heart Sounds: S1 & S2 Pulse Strength: Baseline Pulse Rhythm: Regular Peripheral Edema: No - Airway Assessment C-Spine Mobility Assessed: Yes TMJ Mobility Assessed: Yes Dentition: Poor Dentition - Neurological Assessment Level of Consciousness: Awake, Alert, Appropriate Hx Seizures: No Numbness or tingling in extremities: No - Anesthesia Plan Anesthesia Risk discussed: Yes Anesthesia Plan: Verified ASA Class: II Anesthesia Type: [facility] History I have reviewed the patient's past medical history: Yes Medical History: Denies:: Cancer, Diabetes Mellitus Type 1, Diabetes Mellitus Type 2, Internal Pacemaker, MRSA, Seizures *Have you ever received a pneumonia vaccine?: No *Have you received a flu vaccine this season?: No Other Medical History: Denies: Blood Transfusion Reaction Anesthesia experience/problems:: none Other Surgeries: Yes: Tubal Ligation. No: Pacemaker Amputation: No Fractures: No - *Social History Smoking Status: Former smoker Tobacco Type: cigarettes # Packs/Day (cigarettes): 1 Alcohol Intake: never Substance Use Type: other *Occupational Status:: disabled Housing: assisted living facility Household Members: caregiver *Travel in the last 8 weeks: None Family Hx:: Unable to obtain
[2020-07-03 08:25] VITALS: BP 110/70; PULSE 88; RESP 16; O2SAT 94
[2020-07-03 08:35] VITALS: BP 110/77; PULSE 84; RESP 16; TEMP 36.3; O2SAT 95
== END 2020-07-03 08:38 | disposition home or self-care (01) ==
PROVIDERS: PCP Emergency Medicine; Visit Provider Ophthalmology
DX: H25.813 Combined forms of age-related cataract, bilateral (principal); H31.2 Hereditary choroidal dystrophy; H02.839 Dermatochalasis of unspecified eye, unspecified eyelid
CPT/HCPCS: 66984; V2632

== ENCOUNTER → 2020-07-16 10:26 | Outpatient (CLI) | payer MEDICARE, MEDICAID, SELFPAY ==
[2020-07-16 12:37] LABS: Coronavirus 19 IgG Antibody Positive (Negative); Coronavirus 19 IgM Antibody Negative (Negative)
== END ==
PROVIDERS: Visit Provider Ophthalmology
DX: Z01.818 Encounter for other preprocedural examination (principal); Z98.42 Cataract extraction status, left eye
CPT/HCPCS: 36415; 86328

== ENCOUNTER 2020-07-17 06:16 | Day surgery (SDC) | payer MEDICARE, MEDICAID, SELFPAY ==
[2020-07-10 12:29] VITALS: BMI 28.1
[2020-07-17 06:45] VITALS: BP 98/77; PULSE 73; RESP 18; TEMP 36.3; O2SAT 94
[2020-07-17 08:17] VITALS: BP 121/84; PULSE 69; RESP 16; TEMP 36.8; O2SAT 98
== END 2020-07-17 08:24 | disposition home or self-care (01) ==
PROVIDERS: Visit Provider Ophthalmology
DX: H26.9 Unspecified cataract (principal); F41.9 Anxiety disorder, unspecified; F32.9 Major depressive disorder, single episode, unspecified; H91.90 Unspecified hearing loss, unspecified ear; Z79.899 Other long term (current) drug therapy
CPT/HCPCS: 66984; V2632